=== PATIENT | female | born 1990 | race African-American/Black ===

== ENCOUNTER 2020-03-05 18:40 | Emergency (ER) | payer OTHER, SELFPAY ==
[2020-03-05 18:35] VITALS: BP 132/65; PULSE 96; RESP 19; TEMP 36.8; O2SAT 100
[2020-03-05] MEDS: IBUPROFEN 600 MG TABLET PO (19:12)
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
--- NOTE | 2020-03-05 19:12 | PC.NURSE ---
Pt ambulated to RR w/ no assist, pt used toilet and did not provide sample - states I forgot to pee in the cup. Pt given sips of water w/ PO ordered med and will re attempt.
[2020-03-05 19:46] LABS: Add Urine Microscopic? YES; Appearance Urine Clear (Clear); Bilirubin Urine Negative (Negative); Blood Urine 1+ (Negative); Color Urine Yellow (Yellow); Glucose Urine UA Negative (Negative); Ketones Urine Negative (Negative); Leukocyte Esterase Ur Negative LEU/UL (Negative); Mucus Urine Rare /lpf; Nitrate Urine Negative (Negative); Protein Urine Negative (Negative); Specific Grav Ur 1.025 (1.001-1.035); Squamous Epithelial Cell Urine Occasional /hpf (Few); WBC Urine 0-3 /hpf
== END 2020-03-05 20:00 | disposition home or self-care (01) ==
PROVIDERS: Emergency Medicine; Emergency Provider General Practice
DX: M25.511 Pain in right shoulder (principal); S39.92XA Unspecified injury of lower back, initial encounter; M25.561 Pain in right knee; V49.50XA Passenger injured in collision with unspecified motor vehicles in traffic accident, initial encounter; E66.9 Obesity, unspecified
CPT/HCPCS: 81001; 81025; 99283; A9270

== ENCOUNTER 2020-03-09 10:05 | Emergency (ER) | payer OTHER, SELFPAY ==
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
[2020-03-09 10:08] VITALS: BP 138/89; PULSE 92; RESP 20; TEMP 36.9; O2SAT 100
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
--- NOTE | 2020-03-09 11:51 | PC.NURSE ---
Pt to imaging via wheelchair at this time..
[2020-03-09 12:38] VITALS: BP 145/88; PULSE 88; RESP 14; O2SAT 100
== END 2020-03-09 12:40 | disposition home or self-care (01) ==
PROVIDERS: Emergency Provider Emergency Medicine
DX: S39.012A Strain of muscle, fascia and tendon of lower back, initial encounter (principal); V43.92XA Unspecified car occupant injured in collision with other type car in traffic accident, initial encounter
CPT/HCPCS: 72110; 81025; 99283